=== PATIENT | female | born 1965 | race Caucasian/White ===

== ENCOUNTER 2021-07-01 07:12 | Emergency (ER) | payer OTHER ==
[~2021-07-01] VITALS: Ht 157.5 cm; Wt 62.6 kg
[2021-07-01] MEDS ORDERED: SYNTHROID112 MCG (07:27)
== END 2021-07-01 12:45 ==
LOC: ER 07:12
DX: J06.9 Acute upper respiratory infection, unspecified (principal)